=== PATIENT | female | born 1990 | race Hispanic/Latino ===

== ENCOUNTER 2019-10-26 15:38 | Emergency (ER) | payer MEDICAID ==
[2019-10-26] MEDS ORDERED: LIDOCAINE 5% TOPICAL PATCH TP ONE (16:26)
== END 2019-10-26 17:05 | disposition home or self-care (01) ==
LOC: EDH 15:38
DX: S33.5XXA Sprain of ligaments of lumbar spine, initial encounter (principal); F41.9 Anxiety disorder, unspecified; Z98.890 Other specified postprocedural states; X58.XXXA Exposure to other specified factors, initial encounter; Y93.89 Activity, other specified; Y92.89 Other specified places as the place of occurrence of the external cause; Y99.8 Other external cause status